=== PATIENT | female | born 1980 | race African-American/Black ===

== ENCOUNTER 2017-03-05 02:13 | Emergency (ER) | payer MEDICAID, OTHER ==
[~2017-03-05] VITALS: Ht 170.2 cm; Wt 109.0 kg
[2017-03-05 02:17] VITALS: BP 140/80
== END 2017-03-05 06:06 | disposition left against medical advice (07) ==
LOC: ER 02:13
DX: M79.89 Other specified soft tissue disorders (principal); Z53.21 Procedure and treatment not carried out due to patient leaving prior to being seen by health care provider

== ENCOUNTER 2024-09-15 10:55 | Emergency (ER) | payer MEDICAID, MEDICARE ==
[~2024-09-15] VITALS: Ht 172.7 cm; Wt 90.0 kg
[2024-09-15 10:56] VITALS: O2SAT 96
[2024-09-15] MEDS: ASPIRIN 81MG TABLET PO ONE (11:26)
[2024-09-15 11:33] LABS: BASOPHILS % 1.1 % (0.0-2.0); EOSINOPHILS % 1.6 % (0.0-5.0); HEMATOCRIT. 45.2 % (36.0-48.0); HEMOGLOBIN. 14.8 g/dL (12.0-16.0); LYMPHOCYTES % 20.2 % (20.0-50.0); MEAN CORPUSCULAR HEMOGLOBIN 27.4 pg (28.0-32.0); MEAN CORPUSCULAR HGB CONC 32.7 g/dL (31.0-37.0); MEAN CORPUSCULAR VOLUME 83.6 fL (81.0-99.0); MEAN PLATELET VOLUME 10.2 fl (7.4-10.4); NEUTROPHILS % 72.1 % (40.0-76.0); PLATELET 202 x1000/uL (130-400); RED CELL DISTRIBUTION WIDTH 15.7 % (11.6-14.6); WHITE BLOOD COUNT 10.6 x1000/uL (4.5-11.0)
[2024-09-15 11:39] LABS: CHLORIDE 106 mEq/L (98-107); POTASSIUM 3.7 mEq/L (3.5-5.1); SODIUM 141 mEq/L (136-145)
[2024-09-15 11:40] LABS: CALCIUM 9.8 mg/dL (8.7-10.4); CARBON DIOXIDE 24 mEq/L (21-32)
[2024-09-15 11:45] LABS: CREATININE 1.1 mg/dL (0.6-1.0); GLUCOSE 98 mg/dL (70-105); TROPONIN I HIGH SENSITIVITY 11 ng/L (3.0-34); UREA NITROGEN BLOOD 17 mg/dL (9-23)
[2024-09-15] MEDS: IPRATROPIUM/ALBUTEROL 0.5-3(2.5)MG/3ML NEB HHN ONE (11:48)
[2024-09-15 11:51] LABS: INR 0.9; PARTIAL THROMBOPLASTIN TIME 25.4 sec (23.4-31.0); PROTHROMBIN TIME 9.9 sec (9.6-11.0)
[2024-09-15 11:58] VITALS: PULSE 80; RESP 20
[2024-09-15] MEDS: PREDNISONE 20MG TABLET PO ONE (12:16)
[2024-09-15] MEDS ORDERED: GUAI-450 MT (13:36)
[2024-09-15] MEDS ORDERED: ALBU18HF2 IH (13:36)
[2024-09-15] MEDS ORDERED: P50 MT (13:36)
[2024-09-15 14:16] VITALS: BP 152/75; PULSE 75; RESP 20; TEMP 37.11408; O2SAT 100
== END 2024-09-15 14:40 | disposition home or self-care (01) ==
LOC: ER 11:03 → EDBEDREQ 11:13 → ER 14:40
DX: J20.9 Acute bronchitis, unspecified (principal); F12.90 Cannabis use, unspecified, uncomplicated
CPT/HCPCS: 80048; 83880; 85025; 85610; 85730; 84484; 36415; 71045; 94640; 93005; 94070; 98960; 99285; Z7610 ×4; J7512; A4663; 94664; A4606